=== PATIENT | male | born 1965 | race Caucasian/White ===

== ENCOUNTER → 2016-09-23 | Outpatient (CLI) | payer BC ==
[~2016-09-23] MED LIST: AMT50 PO; ATOR10TA82 PO; BUTA1CAP PO; CYCL10TA6 PO; NAPR-1169 PO; PRLSR20 PO; PROP1TAB PO; TOPI25TA99 PO
[2016-09-23 09:55] LABS: URINE APPEARANCE CLEAR (CLEAR); URINE BILIRUBIN NEG (NEG); URINE COLOR YELLOW; URINE EPITHELIAL CELL AUTO 0-5 /lpf (0-5); URINE NITRITE NEG (NEG); URINE PH 7.5 (4.5-7.5); URINE SPECIFIC GRAVITY 1.006 (1.000-1.030); UROBILINOGEN NEG (NEG)
[2016-09-23 10:04] LABS: MANUAL MICROSCOPIC REQUIRED? NO; REVIEW REQ? NO
[2016-09-23 10:28] LABS: ALT/SGPT 56 U/L (12-78); AST/SGOT 27 U/L (15-37); BLOOD UREA NITROGEN 14 mg/dl (7-18); BUN/CREATININE RATIO 10.9 (10-20); CALCIUM 8.8 mg/dl (8.5-10.1); CARBON DIOXIDE 25 mmol/L (21-32); CHLORIDE 109 mmol/L (98-107); CHOLESTEROL 169 mg/dl (0-200); CHOLESTEROL/HDL RATIO 4.2; GLUCOSE 141 mg/dl (70-99); HDL CHOLESTEROL 40 mg/dl; POTASSIUM 4.4 mmol/L (3.5-5.1); SODIUM 144 mmol/L (136-145)
[2016-09-23 10:38] LABS: LDL CHOLESTEROL CALCULATED 95 mg/dl; PROSTATE SPECIFIC ANTIGEN 0.789 ng/ml (0.000-4.000); TRIGLYCERIDES 170 mg/dl (0-150); VERY LOW DENSITY LIPOPROT CALC 34 mg/dl
== END | disposition home or self-care (01) ==
LOC: C.LAB1850 07:29
PROVIDERS: ATTEND Internal Medicine
DX: R35.0 Frequency of micturition (principal); E78.5 Hyperlipidemia, unspecified; I10 Essential (primary) hypertension

== ENCOUNTER 2017-02-10 02:21 | Emergency (ER) | payer BC ==
[~2017-02-10 02:21] MED LIST changes: -ATOR10TA82 PO; +ATOR10TA88 PO; -CYCL10TA6 PO; -NAPR-1169 PO; -PROP1TAB PO
[2017-02-10] MEDS ORDERED: DIAZEPAM 5MG TAB ONE (03:28)
[2017-02-10] MEDS ORDERED: KETOROLAC TROMETHAMINE 60 MG/2 ML VIAL ONE (03:28)
[2017-02-10 04:49] LABS: HEMATOCRIT 44.3 % (42-52); MEAN CORPUSCULAR HEMOGLOBIN 32.2 pg (25-34); MEAN CORPUSCULAR HGB CONC 35.4 g/dl (32-36); PLATELET COUNT 305 K/uL (130-400); RED BLOOD COUNT 4.87 M/uL (4.7-6.1); WHITE BLOOD COUNT 6.94 K/uL (4.8-10.8)
[2017-02-10 05:13] LABS: ALKALINE PHOSPHATASE 63 U/L (45-117); ALT/SGPT 44 U/L (12-78); AST/SGOT 22 U/L (15-37); BLOOD UREA NITROGEN 19 mg/dl (7-18); BUN/CREATININE RATIO 14.3 (10-20); CARBON DIOXIDE 27 mmol/L (21-32); CHLORIDE 109 mmol/L (98-107); GLUCOSE 116 mg/dl (70-99); POTASSIUM 4.3 mmol/L (3.5-5.1); SODIUM 141 mmol/L (136-145)
[2017-02-10] MEDS ORDERED: NAPR-1169 PO (05:48)
--- NOTE | 2017-02-10 05:49 | EMERGENCY ROOM VISIT NOTE ---
History First contact with patient: 04:28 Chief Complaint: BACK PAIN Stated Complaint: SEVERE BACK PAIN History of Present Illness The patient is a 51 year old male who presents to the Emergency Room with complaints of severe back pain which began this afternoon. The patient states the pain came on suddenly. He reports the pain is in the right upper back, under the shoulder blade. The pain is better when he is standing and worse when lying down. He denies any radiation of the pain and chest, but does state he had some epigastric pain after eating earlier today. He states that he has had issues with having a "knot" in his back in the past, but his symptoms usually go away after some time. He states that his right leg has been slightly shaky and he has had intermittent pains in his left arm. He states the pain is sharp, constant and describes it as a shooting pain. He denies any shortness of breath. He denies any history of blood clots in the lungs. He is not a smoker. He denies any numbness or weakness. Review of Systems A complete 10 point review of systems was reviewed with the patient with pertinent positives and negatives as per history of present illness. All else were negative. Past Medical/Surgical History Medical Problems: (1) Headache Family History Patient reports no known family medical history. Social History Smoking Status: Never Smoker Marital Status: Housing Status: lives with family Occupation Status: employed Current/Historical Medications Scheduled Amitriptyline Hcl (Elavil), 50 MG PO HS Atorvastatin (Lipitor), 5 MG PO HS Naproxen (Naprosyn), 500 MG PO BID Omeprazole (Prilosec), 20 MG PO DAILY Topiramate (Topamax ), 25 MG PO QAM Topiramate (Topamax ), 50 MG PO QPM Scheduled PRN Yjqdgyynaz-Aamcgawxzcrvj-Cjcgl (Zebutal 50-325-40 mg), 1 TABS PO UD PRN for Migraine Physical Exam Vital Signs Date Time Temp Pulse Resp B/P (MAP) Pulse Ox O2 Delivery O2 Flow Rate FiO2 02/10/17 06:06 61 18 139/93 99 Physical Exam VITALS: Vitals are noted on the nurse's note and reviewed by myself. Vital signs stable. GENERAL: This is a 51-year-old male, in no acute distress, nondiaphoretic, well- developed well-nourished. EARS: External auditory canals clear, tympanic membranes pearly do without erythema or effusion bilaterally. EYES: Pupils equal round and reactive to light and accommodation. MOUTH: Mucous membranes moist. NECK: Supple without nuchal rigidity. No lymphadenopathy. HEART: Regular rate and rhythm without murmurs gallops or rubs. LUNGS: Clear to auscultation bilaterally without wheezes, rales or rhonchi. MUSCULOSKELETAL: No tenderness to palpation. Full range of motion throughout. Strength 5/5 throughout. NEURO: Patient was alert and oriented to person place and time. Medical Decision & Procedures ER Provider Diagnostic Interpretation: CHEST X-RAY: No acute cardiopulmonary findings. Laboratory Results 02/10/17 03:20 02/10/17 03:20 Test 02/10/17 03:20 Red Blood Count 4.87 M/uL (4.7-6.1) Mean Corpuscular Volume 91.0 fL (80-100) Mean Corpuscular Hemoglobin 32.2 pg (25-34) Mean Corpuscular Hemoglobin Concent 35.4 g/dl (32-36) RDW Standard Deviation 42.3 fL (36.4-46.3) RDW Coefficient of Variation 12.8 % (11.5-14.5) Mean Platelet Volume 9.0 fL (7.4-10.4) D-Dimer 220 ug/L FEU (0-500) Anion Gap 5.0 mmol/L (3-11) Estimated GFR () 74.3 Estimated GFR (Non- 64.1 BUN/Creatinine Ratio 14.3 (10-20) Calcium Level 8.0 mg/dl (8.5-10.1) Total Bilirubin 0.2 mg/dl (0.2-1) Direct Bilirubin mg/dl (0-0.2) Aspartate Amino Transf (AST/SGOT) 22 U/L (15-37) Alanine Aminotransferase (ALT/SGPT) 44 U/L (12-78) Alkaline Phosphatase 63 U/L (45-117) Troponin I < 0.015 ng/ml (0-0.045) Total Protein 7.3 gm/dl (6.4-8.2) Albumin 3.6 gm/dl (3.4-5.0) ECG Rate (beats per minute): 67 Rhythm: normal sinus Findings: no acute ischemic change, no ectopy Comparison ECG Date: no prior available ED Course The patient was evaluated as above. Labs were drawn and IV access was obtained. Patient was medicated with 5 mg Valium PO and 60 mg Toradol IM. Patient was reevaluated and his back pain has resolved. Discharge instructions were reviewed with the patient. The patient verbalized understanding of my assessment and treatment plan and was discharged home in good condition. Medical Decision Differential diagnosis includes muscle spasm, PE, pneumonia, cardiac source, referred abdominal pain, among others. The patient is a 51-year-old male who presents today complaining of right upper back pain. Labs were unremarkable. D-dimer was negative. Chest x-ray was read by myself was unremarkable. Patient had complete resolution of symptoms after receiving oral Valium and IM Toradol. He was instructed to use the Flexeril that he has at home for migraines and was prescribed Naprosyn. Conservative measures were discussed. Based on the patient's presentation and work up, I feel the patient is stable for outpatient treatment. The patient was educated to return to the emergency department for any worsening of their current condition or new/concerning symptoms. He will follow up with his PCP. Medication Reconcilliation Current Medication List: was personally reviewed by me Blood Pressure Screening Patient's blood pressure: Elevated blood pressure Blood pressure disposition: Elevated BP felt to be situational Impression Primary Impression: Spasm of thoracic back muscle Departure Information Dispostion Home / Self-Care Condition GOOD Prescriptions Naproxen (Naprosyn) 500 Mg Tab 500 MG PO BID for 7 Days, #14 TAB Prov: Susan Grimm ., BRANDO 02/10/17 Referrals Pro,Morales Kerns M.D. (PCP) Patient Instructions My [facility] Additional Instructions You have been treated in the Emergency Department for Back Pain. You have received pain medicine in the emergency department which impairs your ability to operate a vehicle. It is illegal for you to drive after receiving these medicines. Naprosyn as prescribed. For pain control, you can use the following zarg-whb-zvxrqul medicines (if >12 yo): - Regular strength (325mg/tab) Tylenol (acetaminophen) 2 tabs every 4-6 hours as needed. Do not exceed 12 tablets in a 24 hour period. Avoid taking more than 4 grams (4000 mg) of Tylenol per day. This includes any other sources of acetaminophen you may take on a regular basis. A heating pad can be used over the area for continued soothing relief. You should schedule a follow-up appointment in 2-3 days with your Primary Care Provider for further evaluation and treatment of your back pain. Return to the Emergency Department if your current symptoms worsen despite treatment course outlined above, or if you develop any of the following symptoms : intractable pain despite aforementioned treatment course, loss of control of your bowel or bladder, numbness or tingling in your groin, or development of a fever.
[2017-02-10 06:06] VITALS: BP 139/93; PULSE 61; O2SAT 99
--- NOTE | 2017-02-10 06:45 | DIAGNOSTIC IMAGING REPORT ---
CHEST ONE VIEW PORTABLE CLINICAL HISTORY: Chest and back pain. COMPARISON STUDY: No previous studies for comparison. FINDINGS: Lung volumes are normal. No pneumothorax or pleural effusion is present. There is no consolidation to suggest pneumonia. Cardiomediastinal silhouette is normal. Pulmonary vascularity is normal. IMPRESSION: No acute cardiopulmonary findings. Electronically signed by: Alek Maxwell M.D. 02/10/2017 6:44 AM Dictated Date/Time: 02/10/2017 6:44 AM
== END 2017-02-10 06:07 | disposition home or self-care (01) ==
LOC: C.EDB 02:21
DX: M62.838 Other muscle spasm (principal); Z79.899 Other long term (current) drug therapy

== ENCOUNTER → 2017-05-23 | Day surgery (SDC) | payer BC ==
[2017-05-10 13:18] VITALS: Ht 182.9 cm; Wt 109.1 kg
[~2017-05-23] VITALS: Ht 182.9 cm; Wt 109.1 kg
[~2017-05-23] MED LIST changes: +ATOR10TA82 PO; -ATOR10TA88 PO; +CYCL10TA6 PO; +LIDOCAINE HCL 2% 2 ML VIAL (20MG/ML) ONE; +MIDAZOLAM HCL 1 MG/ML 2ML VIAL ONE; +PROP1TAB PO; +PROPOFOL IV EMULSION 10 MG/ML 20 ML VIAL IV ONE; +SODIUM CHLORIDE 0.9% 500ML 500 ML IV ONE
--- NOTE | 2017-05-23 09:31 | Endo History and Physical ---
History & Physical Date of Service: May 23, 2017. Chief Complaint: SCREENING FOR COLON CANCER Referring Physician: DR. SORENSON History of Present Illness 51 yo CM who presents for screening colonoscopy. Past Surgical History Hx Cardiac Surgery: No Hx Internal Defibrillator: No Hx Pacemaker: No Hx Abdominal Surgery: No Hx of Implantable Prosthesis: No Hx Post-Op Nausea and Vomiting: No Hx Cancer Surgery: No Hx Thoracic Surgery: No Hx Orthopedic: No Hx Urinary Tract Surgery: No Family History Colon CA Social History Smoking Status: Never Smoker Hx Substance Use: No Hx Alcohol Use: Yes (OCCASIONALLY) Allergies Coded Allergies: Propoxyphene (Verified Allergy, Mild, "FELT LIKE A ZOMBIE", 05/23/17) Diclofenac (Verified Allergy, Unknown, rash, 05/23/17) Prochlorperazine (Verified Adverse Reaction, Intermediate, Dystonic, 05/23) Current Medications Reported Home Medications Medications Dose Route/Sig Max Daily Dose Days Date Category Inderal (Propranolol HCl) 60 Mg Tab 60 Mg PO QPM 05/10/17 Reported Flexeril (Cyclobenzaprine Hcl) 10 Mg Tab 10 Mg PO TID PRN 05/10/17 Reported Lipitor (Atorvastatin Calcium) 10 Mg Tab 5 Mg PO HS 05/10/17 Reported Zebutal 50-325-40 mg (Conlbijqag-Hksxmpymzrpxc-Tnsmg) 1 Cap Cap 1 Tabs PO UD PRN 08/12/15 Reported Prilosec (Omeprazole) 20 Mg Capcr 20 Mg PO QAM 08/12/15 Reported Elavil (Amitriptyline HCl) 50 Mg Tab 50 Mg PO HS 08/12/15 Reported Topamax (Topiramate) 25 Mg Tab 25 Mg PO BID 08/12/15 Reported Vital Signs Weight (Kilograms): 109.09 Height (Feet): 6 Height (Inches): 0 Date Time Temp Pulse Resp B/P (MAP) Pulse Ox O2 Delivery O2 Flow Rate FiO2 05/23/17 09:10 36.5 73 18 131/88 (102) 97 Room Air Physical Exam General Appearance: WD/WN, no apparent distress Respiratory/Chest: Auscultation: breath sounds normal Cardiovascular: Heart Auscultation: RRR Abdomen: Bowel Sounds: normal Inspection & Palpation: soft, non-distended, no tenderness, guarding & rebound Assessment and Plan Assessment: 51 yo CM who presents for screening colonoscopy. Plan: Proceed with colonoscopy.
[2017-05-23 10:30] VITALS: BP 131/87; PULSE 72; O2SAT 95
--- NOTE | 2017-05-23 10:35 | Anesthesiology Progress Note ---
Anesthesia Post Op Note Date & Time May 23, 2017 at 10:35 Vital Signs Pain Intensity: 0 Vital Signs Past 12 Hours Date Time Temp Pulse Resp B/P (MAP) Pulse Ox O2 Delivery O2 Flow Rate FiO2 05/23/17 10:30 72 16 131/87 (102) 95 Room Air 05/23/17 10:15 70 16 108/76 (87) 95 Room Air 05/23/17 10:00 75 12 101/68 (79) 96 Room Air 05/23/17 09:10 36.5 73 18 131/88 (102) 97 Room Air Notes Mental Status: alert / awake / arousable, participated in evaluation Pt Amnestic to Procedure: Yes Nausea / Vomiting: adequately controlled Pain: adequately controlled Airway Patency, RR, SpO2: stable & adequate BP & HR: stable & adequate Hydration State: stable & adequate Anesthetic Complications: no major complications apparent
--- NOTE | 2017-05-23 11:21 | Discharge Instructions ---
Endoscopy Patient Instructions Date / Procedure(s) Performed May 23, 2017. Colonoscopy Allergy Information Coded Allergies: Propoxyphene (Verified Allergy, Mild, "FELT LIKE A ZOMBIE", 05/23/17) Diclofenac (Verified Allergy, Unknown, rash, 05/23/17) Prochlorperazine (Verified Adverse Reaction, Intermediate, Dystonic, 05/23) Discharge Date / Findings May 23, 2017. Normal colonoscopy Medication Instructions OK to resume all medications today as prescribed Reported Home Medications Medications Dose Route/Sig Max Daily Dose Days Date Category Inderal (Propranolol HCl) 60 Mg Tab 60 Mg PO QPM 05/10/17 Reported Flexeril (Cyclobenzaprine Hcl) 10 Mg Tab 10 Mg PO TID PRN 05/10/17 Reported Lipitor (Atorvastatin Calcium) 10 Mg Tab 5 Mg PO HS 05/10/17 Reported Zebutal 50-325-40 mg ([place]-Hlisvzdmcrbvj-Goqpd) 1 Cap Cap 1 Tabs PO UD PRN 08/12/15 Reported Prilosec (Omeprazole) 20 Mg Capcr 20 Mg PO QAM 08/12/15 Reported Elavil (Amitriptyline HCl) 50 Mg Tab 50 Mg PO HS 08/12/15 Reported Topamax (Topiramate) 25 Mg Tab 25 Mg PO BID 08/12/15 Reported Provider Instructions Activity Restrictions - No exercising or heavy lifting for 24 hours. - Do not drink alcohol the day of the procedure. - Do not drive a car or operate machinery until the day after the procedure. - Do not make any important decisions or sign important papers in 24 hours after the procedure. Following Day: - Return to full activity which may include returning to work/school. Diet Start your diet with liquids and light foods (jello, soup, juice, toast). Then eat your usual diet if not nauseated. Treatment For Common After Affects For mild abdominal pain, bloating, or excessive gas: - Rest - Eat lightly - Lie on right side Follow-Up Information Follow-up with DR. SORENSON as scheduled Anesthesia Information What You Should Know You have had a procedure that required some medicine to reduce anxiety and discomfort. This treatment is called moderate sedation. After receiving the treatment, you may be sleepy, but you will be able to breathe on your own. The effects of the treatment may last for several hours. Follow these instructions along with Activity/Diet recommendations noted above: * Do NOT do anything where dizziness or clumsiness would be dangerous. * Rest quietly at home today, then you can be up and about tomorrow. * Have a responsible person stay with you the rest of today. * You may have had an I.V. today. If so, you may take the dressing off later today. Recommendations Call your doctor if: * Trouble breathing * Continuous vomiting for more than 24 hours * Temperature above 101 degrees * Severe abdominal pain or bloating * Pain not relieved by pain medicine ordered * There is increased drainage or redness from any incision * A large amount of rectal bleeding greater than 2-3 tablespoons. (If you had a polyp/s removed or have hemorrhoids, a small amount of blood - from the rectum is to be expected.) * You have any unanswered questions or concerns. IN THE EVENT OF A SERIOUS EMERGENCY, GO TO THE NEAREST EMERGENCY ROOM Your discharge instructions were prepared by provider Alfredo Horn. Patient Instructions Signature Page Justin Barajas Patient (or Guardian) Signature/Date: I have read and understand the instructions given to me by my caregivers. Caregiver/RN/Doctor Signature/Date: The above-named patient and/or guardian has received patient instructions on this date. + Original Patient Signature Page (only) stays with chart. Please make copy for patient.
--- NOTE | 2017-05-23 11:26 | GI REPORT ---
Procedure Date: 05/23/2017 9:44 AM Procedure: Colonoscopy Indications: Family history of colon cancer in a first-degree relative Medicines: Monitored Anesthesia Care Complications: No immediate complications. Estimated Blood Loss: Estimated blood loss: none. Procedure: Pre-Anesthesia Assessment: - Prior to the procedure, a History and Physical was performed, and patient medications and allergies were reviewed. The patient's tolerance of previous anesthesia was also reviewed. The risks and benefits of the procedure and the sedation options and risks were discussed with the patient. All questions were answered, and informed consent was obtained. Prior Anticoagulants: The patient has taken no previous anticoagulant or antiplatelet agents. ASA Grade Assessment: II - A patient with mild systemic disease. After reviewing the risks and benefits, the patient was deemed in satisfactory condition to undergo the procedure. After I obtained informed consent, the scope was passed under direct vision. Throughout the procedure, the patient's blood pressure, pulse, and oxygen saturations were monitored continuously. The scope was introduced through the anus and advanced to the terminal ileum. The colonoscopy was performed without difficulty. The patient tolerated the procedure well. The quality of the bowel preparation was good. The terminal ileum, ileocecal valve, appendiceal orifice, and rectum were photographed. Findings: The perianal and digital rectal examinations were normal. The colon (entire examined portion) appeared normal. Impression: - The entire examined colon is normal. - No specimens collected. Recommendation: - Resume previous diet. - Continue present medications. - Repeat colonoscopy in 5 years for surveillance. - Return to primary care physician as previously scheduled. Alfredo Horn DO 05/23/2017 11:26:04 AM This report has been signed electronically. Note Initiated On: 05/23/2017 9:44 AM I attest to the content of the Intraoperative Record and orders documented therein, exceptions below
== END | disposition home or self-care (01) ==
LOC: C.GI 08:56
PROVIDERS: ATTEND Internal Medicine
DX: Z12.11 Encounter for screening for malignant neoplasm of colon (principal); Z80.0 Family history of malignant neoplasm of digestive organs; K21.9 Gastro-esophageal reflux disease without esophagitis; I10 Essential (primary) hypertension